=== PATIENT | male | born 1980 | race Caucasian/White ===

== ENCOUNTER 2017-02-13 23:28 | Emergency (ER) | payer BC ==
--- NOTE | 2017-02-14 00:41 | NUR ---
CALLED NO ANSWER IN LOBBY
== END 2017-02-14 01:03 | disposition left against medical advice (07) ==
LOC: ER 23:28
DX: Z53.21 Procedure and treatment not carried out due to patient leaving prior to being seen by health care provider (principal)

== ENCOUNTER 2022-06-27 23:34 | Emergency (ER) | payer BC ==
[~2022-06-27] VITALS: Ht 172.7 cm; Wt 68.0 kg
--- NOTE | 2022-06-27 23:38 | NUR ---
BIB FAMILY FOR C/O L SIDED ABD PAIN AND NAUSEA X2 DAYS. PT A/OX4 TOLERARING R/A WELL WITH NO RESP DISTRESS. SAFETY MEASURES IN PLACE.
[2022-06-27] MEDS ORDERED: ONDANSETRON HCL/PF 4 MG/2 ML VIAL ONE (23:56)
[2022-06-27] MEDS ORDERED: KETOROLAC TROMETHAMINE 15 MG/ML VIAL ONE (23:56)
[2022-06-28] MEDS ORDERED: KETOROLAC TROMETHAMINE INJ 30 MG/ML VIAL IV ONE
[2022-06-28] MEDS ORDERED: ONDANSETRON HCL/PF 4 MG/2 ML VIAL IVP ONE
--- NOTE | 2022-06-28 00:04 | NUR ---
RAC #20G S/L BLOOD COLLECTED AND SENT TO LAB
--- NOTE | 2022-06-28 00:19 | NUR ---
PT TAKEN TO CT VIA [facility]
--- NOTE | 2022-06-28 00:31 | NUR ---
PT RETURNED TO ER BED [address]
[2022-06-28 01:38] LABS: BASOPHILS % (AUTO) 0.3 % (0.0-2.0); EOSINOPHILS % (AUTO) 1.5 % (0.0-6.0); HEMATOCRIT 43 % (39-51); HEMOGLOBIN 15.4 g/dL (13.5-17.5); LYMPHOCYTES # (AUTO) 2.9 K/uL (0.8-4.8); LYMPHOCYTES % (AUTO) 34.3 % (20.0-44.0); MEAN CORPUSCULAR HGB CONC 36 g/dl (31.0-36.0); MEAN CORPUSCULAR VOLUME 91 fL (80-96); MONOCYTES # (AUTO) 0.6 K/uL (0.1-1.30); MONOCYTES % (AUTO) 6.8 % (2.0-12.0); NEUTROPHILS # (AUTO) 4.8 K/uL (1.8-8.9); NEUTROPHILS % (AUTO) 57.1 % (43.0-81.0); PLATELET COUNT (AUTO) 240 K/uL (150-450); RED BLOOD CELL COUNT(AUTO) 4.69 MIL/uL (4.5-6.0); WHITE BLOOD COUNT (AUTO) 8.3 K/uL (4.3-11.0)
[2022-06-28 01:46] LABS: CALCIUM, SERUM 9.9 mg/dL (8.5-10.1); CREATININE 0.9 mg/dL (0.6-1.3); POTASSIUM 3.6 mmol/L (3.5-5.1)
[2022-06-28 01:52] LABS: ALBUMIN 4.7 g/dL (3.4-5.0); BILIRUBIN,DIRECT 0.2 mg/dL (0.0-0.2); BILIRUBIN,TOTAL 0.9 mg/dL (0.2-1.0); TOTAL PROTEIN, SERUM 7.7 g/dL (6.4-8.2)
[2022-06-28] MEDS ORDERED: DICY10CA37 PO (02:16)
--- NOTE | 2022-06-28 02:27 | NUR ---
Patient discharged to home in stable condition. Written and verbal after care instructions given. Patient verbalizes understanding of instruction. IV removed. Catheter intact and site benign. Pressure and 4x4 applied to site. No bleeding noted. pt ambulatory with a steady gait
[2022-06-28 04:10] VITALS: BP 121/81
== END 2022-06-28 02:30 | disposition home or self-care (01) ==
LOC: ER 23:37
DX: R10.12 Left upper quadrant pain (principal)
CPT/HCPCS: 99285; 74176; 96374; 96375; 36415; 85025; 80048; 83690; 80076; J2405; J1885